=== PATIENT | male | born 1980 | race Caucasian/White ===

== ENCOUNTER 2022-08-22 17:54 | Observation (INO) | payer MEDICARE, MEDICAID ==
[~2022-08-22 17:54] MED LIST: Heparin 10,000 UNITS/ 10 ML VIAL ONE
[2022-08-22 19:40] LABS: Mean Corpuscular HGB CONC 33.4 g/dL (32.0-36.0); Mean Corpuscular Hemoglobin 33.3 pg (27.0-31.0); Mean Corpuscular Volume 99.8 fl (78.0-98.0); Mean Platelet Volume 6.3 fL (7.4-10.4); Platelet Count 208 10x3/uL (130-400); RBC Distribution Width 16.9 % (11.5-14.5); Red Blood Cell (RBC) Count 3.31 mill/uL (4.70-6.10); White Blood Cell (WBC) Count 4.1 10x3/uL (4.8-10.8)
[2022-08-22 19:56] LABS: Anisocytosis SLIGHT = 6-15 cells (100X) (0-5/hpf); Band 2 % (5-11); Eosinophils 9 % (0-10); Lymphocytes 5 % (21-51); MDiff Complete? YES; Monocytes 13 % (0-10); Neutrophil 71 % (42-75); Platelet Morphology Comment Appears Adequate; Polychromasia SLIGHT = 2-3 cells (100X) (0-2/hpf)
[2022-08-22 20:01] LABS: ALT (SGPT) 41 U/L (8-55); AST (SGOT) 36 U/L (5-34); Albumin 3.4 g/dL (3.5-5.0); Alkaline Phosphatase 478 U/L (40-110); Anion Gap 20 mmol/L (10-20); BUN (Urea Nitrogen) 90 mg/dL (8.9-20.6); Bilirubin, Total 0.7 mg/dL (0.2-1.2); Calc. Creatinine Clearance 0 mL/min (70-130); Calcium 8.5 mg/dL (7.8-10.44); Carbon Dioxide 20 mmol/L (22-29); Chloride 95 mmol/L (98-107); Estimated GFR 8; Globulin 4.6 g/dL (2.4-3.5); Glucose 89 mg/dL (70-105); Potassium 5.9 mmol/L (3.5-5.1); Sodium 129 mmol/L (136-145)
[2022-08-22] MEDS ORDERED: Dextrose 50% Abboject 50 ML SYRINGE ONE (21:35)
[2022-08-22] MEDS ORDERED: CALCIUM GLUC 1 GM/NS 50 ML BAG ONE (21:35)
[2022-08-22] MEDS ORDERED: LOKELMA 10 GM PACKET PO SCH (22:00)
[2022-08-22] MEDS ORDERED: Insulin Regular 300 UNITS/3 ML VIAL ONE (22:07)
[2022-08-22] MEDS ORDERED: Dextrose 50% Abboject 50 ML SYRINGE SLOW IVP PRN (22:30)
[2022-08-22] MEDS ORDERED: Acetaminophen 325 MG TAB PO PRN (22:30)
[2022-08-22] MEDS ORDERED: HumaLOG 300 UNITS/3 ML VIAL SC PRN ×2 (22:30)
[2022-08-22] MEDS ORDERED: Dextrose 5% in Water 1,000 ML IV PRN (22:30)
[2022-08-22 23:27] LABS: Hemoglobin A1c 4.9 % (4.0-6.0)
[2022-08-22 23:41] LABS: HBSAg Index 0.23 S/CO (0-0.99); Hep B Core Total Ab Non-Reactive (NonReactive); Hep B Core Total Index 0.12 S/CO (0-0.79); Hep B Surf Ag Non-Reactive S/CO (NonReactive); Hep C IgG Ab Non-Reactive S/CO (NonReactive); Hep C Index 0.25 S/CO (0-0.79)
[2022-08-22 23:44] LABS: HBSAB Concentration 122.67 mIU/mL; Hep B Surf AB Reactive (NonReactive)
[2022-08-23 06:07] VITALS: BMI 39.6
[2022-08-23 07:31] LABS: Hemoglobin 9.7 g/dL (14.0-18.0); Mean Corpuscular HGB CONC 32.2 g/dL (32.0-36.0); Mean Corpuscular Hemoglobin 32.1 pg (27.0-31.0); Mean Corpuscular Volume 99.7 fl (78.0-98.0); Mean Platelet Volume 6.2 fL (7.4-10.4); Platelet Count 210 10x3/uL (130-400); RBC Distribution Width 16.9 % (11.5-14.5); Red Blood Cell (RBC) Count 3.03 mill/uL (4.70-6.10); White Blood Cell (WBC) Count 4.3 10x3/uL (4.8-10.8)
[2022-08-23 07:41] LABS: ALT (SGPT) 45 U/L (8-55); AST (SGOT) 45 U/L (5-34); Albumin 3.1 g/dL (3.5-5.0); Alkaline Phosphatase 420 U/L (40-110); Anion Gap 19 mmol/L (10-20); BUN (Urea Nitrogen) 68 mg/dL (8.9-20.6); Bilirubin, Total 0.8 mg/dL (0.2-1.2); Calc. Creatinine Clearance 31 mL/min (70-130); Calcium 8.3 mg/dL (7.8-10.44); Carbon Dioxide 20 mmol/L (22-29); Chloride 97 mmol/L (98-107); Estimated GFR 10; Globulin 4.4 g/dL (2.4-3.5); Potassium 4.8 mmol/L (3.5-5.1); Protein, Total 7.5 g/dL (6.0-8.3); Sodium 131 mmol/L (136-145)
[2022-08-23 07:45] LABS: Glucose 50 mg/dL (70-105)
[2022-08-23 08:10] LABS: Band 6 % (5-11); Eosinophils 5 % (0-10); Lymphocytes 6 % (21-51); MDiff Complete? YES; Monocytes 15 % (0-10); Neutrophil 67 % (42-75); Platelet Morphology Comment Appears Adequate; Polychromasia SLIGHT = 2-3 cells (100X) (0-2/hpf)
[2022-08-23] MEDS ORDERED: Heparin 10,000 UNITS/ 10 ML VIAL ONE (08:34)
[2022-08-23] MEDS ORDERED: Gabapentin 300 MG CAP PO SCH (09:00)
[2022-08-23] MEDS ORDERED: Losartan 25 MG TAB PO SCH (09:00)
[2022-08-23] MEDS ORDERED: EPOETIN ALFA-EPBX (ESRD) 4,000 UNITS/ML VIAL SC SCH (09:00)
[2022-08-23] MEDS ORDERED: EPOETIN ALFA-EPBX (ESRD) 10,000 UNITS/ML VIAL SC SCH (09:00)
[2022-08-23] MEDS: Carvedilol 25 MG TAB PO SCH ×2 (15:00→18:30)
[2022-08-23] MEDS: Heparin 5,000 UNITS/ML VIAL SC SCH (15:00)
[2022-08-23 22:07] VITALS: BP 149/72; TEMP 97.9
[2022-08-25 13:41] LABS: EliA Vaculitis New Method **** NEW METHOD ****; Mitochondrial Ab 1.5 U/mL (<4 Negative)
== END 2022-08-23 21:30 | disposition home or self-care (01) ==
LOC: ERS 17:54 → 2NO 21:27
PROVIDERS: ADMIT Family Medicine; ATTEND Family Medicine
DX: E87.70 Fluid overload, unspecified (principal); I10 Essential (primary) hypertension; E11.22 Type 2 diabetes mellitus with diabetic chronic kidney disease; N18.6 End stage renal disease; D63.1 Anemia in chronic kidney disease; E87.5 Hyperkalemia; R74.8 Abnormal levels of other serum enzymes; J98.11 Atelectasis; H54.8 Legal blindness, as defined in USA; R18.8 Other ascites; E11.649 Type 2 diabetes mellitus with hypoglycemia without coma; Z91.158 Patient's noncompliance with renal dialysis for other reason; Z79.899 Other long term (current) drug therapy; Z89.611 Acquired absence of right leg above knee; Z99.2 Dependence on renal dialysis
CPT/HCPCS: 71045; 71250; 76705; 80053 ×2; 82962; 82977; 83036; 83516; 83880; 85025 ×2; 86704; 93005; 96372; 96374; 99284; G0378 ×2; J0613; Q5105; 36415; 36416; 90935; G0257; J1644; J1815; J7999